=== PATIENT | female | born 1975 | race Caucasian/White ===

== ENCOUNTER → 2021-04-18 12:32 | Outpatient (BNVA) | payer OTHER, SELFPAY | PROVIDERS: Visit Provider Physician Assistant | DX: E66.3 Overweight (principal); Z68.28 Body mass index [BMI] 28.0-28.9, adult | CPT/HCPCS: 99202 ==

== ENCOUNTER 2021-05-14 10:30 | Outpatient (REF) | payer OTHER, SELFPAY | END 2021-05-14 10:31 | disposition home or self-care (01) | LOC: HO.LAB 10:30 | PROVIDERS: PCP Internal Medicine; Visit Provider Internal Medicine | DX: Z20.822 Contact with and (suspected) exposure to COVID-19 (principal) | CPT/HCPCS: C9803; U0003; U0005 ==

== ENCOUNTER 2021-05-27 14:58 | Outpatient (REF) | payer OTHER, SELFPAY ==
[2021-05-27 15:39] LABS: COVID-19 Test Negative (Negative); IDNOW Serial# 08D9AD1C
== END 2021-05-27 14:59 | disposition home or self-care (01) ==
LOC: HO.LAB 14:58
PROVIDERS: Visit Provider Internal Medicine
DX: Z20.822 Contact with and (suspected) exposure to COVID-19 (principal)
CPT/HCPCS: 36415; 87635; C9803

== ENCOUNTER 2021-07-17 13:53 | Outpatient (REF) | payer OTHER, SELFPAY | END 2021-07-17 13:54 | disposition home or self-care (01) | LOC: HO.LAB 13:53 | PROVIDERS: PCP Internal Medicine; Visit Provider Internal Medicine | DX: Z20.822 Contact with and (suspected) exposure to COVID-19 (principal) | CPT/HCPCS: C9803; U0003; U0005 ==

== ENCOUNTER 2021-09-29 12:15 | Outpatient (REF) | payer OTHER, SELFPAY | END 2021-09-29 12:16 | disposition home or self-care (01) | LOC: HO.LAB 12:15 | PROVIDERS: Visit Provider Internal Medicine | DX: Z20.822 Contact with and (suspected) exposure to COVID-19 (principal) | CPT/HCPCS: C9803; U0003; U0005 ==

== ENCOUNTER 2022-03-19 09:20 | Outpatient (REF) | payer OTHER, SELFPAY ==
--- NOTE | 2022-03-19 11:18 | MHC.AU.ANR ---
Adult Audiological Evaluation Date of Visit: 03/19/22 Reason for Appointment: Audiological evaluation due to concerns for decreased hearing. Ms. Roman notes that she has difficulty hearing when people are speaking softly and finds she has to turn the volume on the TV up. She feels her hearing has been worse over the past year. She notes some recent ear pain and fullness in her ears. She reports occasional ringing in her ears, which based on description is likely transient ear noise. Does patient feel they have a hearing loss?: Yes If Yes, Which Ear?: Both Ears When Was Hearing Difficulty First Noticed?: ~1 year ago Has hearing been tested previously?: No Hearing Handicap Inventory: HHIE SCORE: 8 Based on HHIE score, patient has: No perceived hearing handicap Ear History: Recent Ear Pain: Both Ears History of Ear Wax Buildup: Both Ears Blocked/Full Sensation in Ear(s): Both Ears Medical History: Medical History: Headache, High Fevers, Migraines, Asthma Allergies: Seasonal allergies, penicillin Medication List: cetirizine, Sronyx, Proair inhaler, Advair, Montelukast, sumatriptan Otoscopy: Right Ear: Unremarkable Left Ear: Unremarkable Tympanometry: Tympanometry performed due to: To assess integrity of the middle ear system Right Ear: Normal Middle Ear System (Type A) Left Ear: Normal Middle Ear System (Type A) Hearing Evaluation: Transducer(s) Used: Insert Earphones Method: Conventional Audiometry Stimuli Used: Pure Tones Right Ear: Description of Hearing: Normal hearing from 250-8000 Hz. Left Ear: Description of Hearing: Normal hearing from 250-8000 Hz. Speech Recognition Threshold (SRT): Method Used: Monitored Live Voice Stimuli Used: Spondee Words Right Ear: 10 dBHL Left Ear: 15 dBHL Word Discrimination: Method: Recorded Lists Word Lists Used: NU-6 Right Ear: 100% at 55 dBHL Left Ear: 100% at 55 dBHL Interpretation of Results: Today's testing indicates hearing in the normal range at all frequencies tested bilaterally and normal middle-ear function bilaterally. Speech recognition abilities in quiet are excellent at a normal conversational volume. Recommendations: No further audiological action is indicated at this time. Audiological re-evaluation if changes are noted. Diagnosis: Primary Diagnosis: H93.293 Abnormal Auditory Perception Services Performed: Services Performed: Pure Tone- Air (CPT 00844) Speech Audiometry Threshold, with Speech Recognition (CPT 18817) Tympanometry (CPT 41839) Signature: Provider: Lusi Jorge, CCC-A
== END 2022-03-19 09:21 | disposition home or self-care (01) ==
LOC: HO.SH 09:20
PROVIDERS: Visit Provider Internal Medicine
DX: Z01.10 Encounter for examination of ears and hearing without abnormal findings (principal); H93.293 Other abnormal auditory perceptions, bilateral
CPT/HCPCS: 92552; 92556; 92567

== ENCOUNTER → 2023-11-24 11:09 | Outpatient (BNVA) | payer OTHER, SELFPAY | PROVIDERS: PCP Internal Medicine; Visit Provider Physician Assistant ==

== ENCOUNTER 2023-12-17 09:56 | Outpatient (AMB) | payer OTHER, SELFPAY ==
--- NOTE | 2023-12-17 10:04 | MHC.OFFVISWM ---
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 She had one visit in our office for MWL program initiation, but did not follow up. Her weight in April 2021 was 143.6 with a BMI of 28. Her goal is to lose weight and achieve a healthy lifestyle. She reports first being concerned about her weight 15 years ago, highest weight to date was 165. Current weight is 154.6 pounds with a BMI of 30.2. She has tried multiple methods of weight loss including fad diets, without permanent results. She lives with her and daughter. 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 She wakes at:?9 am, and goes to bed at?1230 am. Dinner is at 8 pm. Breakfast: coffee starbucks RTD, banana (green-yellow), oatmeal AM snack: skip Lunch: skip or or soup panerra cheese and brocoli PM snack: skip Dinner: white rice w beef stew, rice and beans, steak, chicken, vegetables After dinner: flan, rice pudding Other snacks: eclair w milk Liquids: 16-32 oz water daily, orange soda or coke 12 oz 2-3 x per week, no juice Alcohol/marijuana/tobacco intake: none Exercise: walk, could join gym [facility] Medical History Hx of LEEP (loop electrosurgical excision procedure) of cervix complicating Surgical History Hx of breast biopsy History of conization of cervix History of pubovaginal sling Family History Mother Cancer Father Heart attack Brother No problems noted. Brother No problems noted. Sister No problems noted. Sister No problems noted. Daughter No problems noted. Daughter No problems noted. Daughter No problems noted. Social History Alcohol intake: current Alcohol intake frequency: holidays/special occasions only Patient Tobacco Use Status: Never used Tobacco Physical Exam Const General: cooperative, healthy appearing and no acute distress Orientation/consciousness: patient oriented x3 HEENT Head: Yes normal to inspection Ears: hearing grossly normal bilaterally General nose exam: Normal external nose present Face and sinus: Yes normal facial exam Eyes General: appearance normal, both eyes and all related structures Resp Effort & Inspection: normal respiratory effort Auscultation: clear to auscultation bilaterally Cardio Rate: regular rate Rhythm: regular rhythm Heart sounds: S1 normal heart sound present and S2 normal heart sound present GI Inspection: Yes normal to inspection, No distended and Yes obesity Palpation (GI): Soft to palpation, nontender and no guarding Auscultation: normal bowel sounds Skin General skin exam: no rashes or lesions noted Neuro General: patient oriented x3 Extrem General: No edema Psych Appearance: grossly normal Mental Status: mental status grossly normal Speech and movement: Normal speech and movement present Affect: normal affect Attitude: cooperative Assessment & Plan Assessment & Plan (1) Obesity (BMI 30-39.9): Code(s): E66.9 - Obesity, unspecified Plan: This is a?48 yo female who will start our MWL program.? She will be given a meal plan, exercise plan and follow-up appointment. ? Adequate sleep of 7-8 hours per night discussed, awakening at 9 ma nd going to bed around 1230 am ? Purchase body composition analyzer scale (Néstoro recommended) and check weight weekly. The best time to do this is first thing in the morning after going to the bathroom. 1. Nutritional counseling: Be sure to careful read the number of scoops per shake Start with 2 Celebrate Rebuild shakes ([facility] [employer], [employer], [email or web address])) First shake, 2 scoops in 12 oz unsweetened almond milk) at 10am-12pm 1 protein bar (Celebrate bars at [facility] [employer], [employer], [email or web address])) at 2pm-4pm. Another shake with 1 scoop in 12 oz unsweetened almond milk at 5pm-7pm. Dinner at 8pm (7 forks of protein and 7 forks of salad/vegetables). Meal to include lean meat (beef, fish, pork, turkey, chicken), cooked vegetables or a salad with olive oil and/or fruits (berries, pears, apples, kiwi). Avoid salt, breads, potatoes, rice, pasta, desserts. 1 cup fresh berries (strawberries, blueberries, raspberries, blackberries), or an apple, or pear, or kiwi, or orange in the evening if you wish. Try to drink 64 oz of water daily and avoid soda and juices. ?2. Each shake would be drunk slowly, like coffee in a period of 2 hours. ?3. Cut each bar in 4 pieces and eat each piece in 30 min ?to make each bar last 2 hours. ?4. I emphasized the importance of measuring accurately the food portion and measure it carefully when serving the food on the plate ?5. The meal portions include 7 full-size forks of meat and 7 full-size forks of salad. You always eat the meat portion but you can replace up to half of the forks of salad/vegetables with rice, potatoes or pasta, or a fruit ?if you like. The less you do it the better weight loss will be. ?6. One full-size fork is what can be scooped on the fork without falling aside and not what can be bit with the fork. Use regular forks like those you find in a typical restaurant. ?7.? Please send me weight measurements as soon as possible and then once a week. Always include your diet and exercise plan. Alternatively come weekly at the office for weight checks and send me the measurements. ?8. Exercise counseling: Begin by watching a stretching for beginners video. Start slowly and begin to stretch your muscles. You should do this before and after each exercise session to prevent injury. Please join a fitness gym near your home. Ask the utility sales and service manager or one of the trainers how to use the machines if you are unfamiliar with them. Start elliptical with a resistance of 2. Increase resistance by 1 every 3 min to your most comfortable resistance with a max resistance of 8. Reduce the resistance by 1 every 3 minutes back down to 2 and repeat cycles for 300 calories. Alternatively, start treadmill with a speed of 3.0 and incline of 0, increasing incline by 1 every 3 minutes to the highest comfortable level (max 6 for now) then decrease in the same fashion. Repeat process to a goal of 300 calories. Goal of 2000 calories burned or more weekly. You may also consider use of the stationary bike. The easiest would be to chose the fat-burn or interval training program on the machine and do this until you reach the 300 calorie goal. Alternatively, you can manually adjust the resistance in a similar fashion as mentioned above, (resistance of 2-8 with a goal speed of 12 mph). Tracking calories is essential. 9. Alternatively start walking outside daily, tracking calories with a goal of 300 calories per day, daily. You can download the cecil [employer] which can track your time, distance and calories while walking outside. You press start in the cecil when you start and then stop when you are finished. 10.? It is important to communicate with me by text weekly 11. Please follow the diet plan exactly, without any change. If you do not like something about the plan or you feel hungry, you need to communicate with me so I can help you revise the plan. You should not change the plan yourself. Text me at [phone] 12. Goal is to lose at least 8 pounds in the first month Patient is morbidly obese and is not considered stable at this time.?I spent a total of 70 minutes reviewing/updating records, examining the patient and counseling the patient on weight management as detailed above. Coding Level of Care Code Est Pt Level 4 (71183) Diagnoses Obesity (BMI 30-39.9) E66.9 Time Spent (min) 60
[2023-12-17 10:11] VITALS: BP 126/74; PULSE 90; TEMP 36.3; O2SAT 97; BMI 30.2
== END 2023-12-17 11:35 | disposition home or self-care (01) ==
PROVIDERS: PCP Internal Medicine; Visit Provider Physician Assistant Surgical
DX: E66.9 Obesity, unspecified (principal); Z68.30 Body mass index [BMI] 30.0-30.9, adult
CPT/HCPCS: 99214

== ENCOUNTER → 2023-12-17 09:56 | Outpatient (BNVA) | payer OTHER, SELFPAY | PROVIDERS: PCP Internal Medicine; Visit Provider Physician Assistant Surgical | DX: E66.9 Obesity, unspecified (principal); Z68.30 Body mass index [BMI] 30.0-30.9, adult | CPT/HCPCS: 99212 ==

== ENCOUNTER 2023-12-20 09:06 | Outpatient (REF) | payer OTHER, SELFPAY ==
[2023-12-20 09:33] LABS: MANUAL DIFF FLAG NO
[2023-12-20 09:50] LABS: Basophils Absolute Auto 0.1 X10*3/uL (0.0-0.2); Basophils Percent Auto 0.7 % (0-2); Eosinophils Absolute Auto 0.4 X10*3/uL (0.0-0.4); Eosinophils Percent Auto 3.8 % (0-4); Hematocrit 41.3 % (37.0-47.0); Hemoglobin 13.4 g/dl (12.0-16.0); Imm Gran Abs Auto 0.04 X10*3/uL (0.00-0.03); Imm Gran Pct Auto 0.4 % (0.0-0.4); Lymphocytes Absolute Auto 3.8 X10*3/uL (1.2-4.9); Lymphocytes Percent Auto 35.8 % (20-40); Mean Corpuscular HGB Conc 32.4 g/dl (31.0-35.0); Mean Corpuscular Hemoglobin 28.7 pg (27.0-33.0); Mean Corpuscular Volume 88.4 fL (80.0-98.0); Mean Platelet Volume 11.3 fL (9.4-12.3); Monocytes Absolute Auto 0.6 X10*3/uL (0.1-1.2); Neutrophils Absolute Auto 5.6 x10*3/uL (2.0-8.3); Neutrophils Percent Auto 53.3 % (45-73); Platelet Count 298 X10*3/uL (160-400); Red Blood Count 4.67 X10*6/uL (4.20-5.50); White Blood Count 10.5 X10*3/uL (4.8-10.8)
[2023-12-20 10:01] LABS: Estimated Average Glucose 103 mg/dL; Hemoglobin A1c % 5.2 % (<6.0)
[2023-12-20 10:51] LABS: Alanine Aminotransferase 14 U/L (0-31); Albumin Level 3.9 g/dL (3.5-5.0); Alkaline Phosphatase 64 U/L (39-117); Anion Gap 12 (12-20); Aspartate Amino Transferase 17 U/L (5-31); Bilirubin Total 0.3 mg/dL (0.0-1.0); Blood Urea Nitrogen 18 mg/dL (9-16); C Reactive Protein 1.09 mg/dL (< or = 0.50); Calcium 8.5 mg/dL (8.4-10.2); Carbon Dioxide 25 mmol/L (22-29); Chloride 106 mmol/L (96-108); Cholesterol 240 mg/dL (<200); Estimated Glomerular Filt Rate > 60; Glucose Random 98 mg/dL (60-115); HDL Cholesterol 57 mg/dL (>40); Iron 54 mcg/dL (30-160); LDL Cholesterol Calculated 169 mg/dL (<100); Percent Iron Saturation 16 % (15-50); Potassium 3.8 mmol/L (3.3-5.1); Sodium 139 mmol/L (135-145); Total Iron Binding Capacity 346 mcg/dL (228-428); Total Protein 7.3 g/dL (6.5-8.0); Triglycerides 73 mg/dL (<150); Unsaturated Iron Binding 292 ug/dL
[2023-12-20 11:00] LABS: Ferritin 65 ng/mL (10-250); TSH reflex Free T4 1.06 uIU/mL (0.32-4.0); Vitamin D 25-OH Total 30.7 ng/mL (>30)
[2023-12-20 11:38] LABS: Insulin 7 uU/mL (2-29)
[2023-12-20 12:29] LABS: Folate 8.8 ng/mL (> or = 4.0); Vitamin B12 471 pg/mL (200-900)
[2023-12-23 00:18] LABS: Zinc 80 mcg/dL (60-130)
[2023-12-24 01:24] LABS: Vitamin A 63 mcg/dL (38-98)
[2023-12-24 13:43] LABS: Vitamin B1 7 nmol/L (8-30)
== END 2023-12-20 09:07 | disposition home or self-care (01) ==
LOC: HO.LAB 09:06
PROVIDERS: PCP Internal Medicine; Visit Provider Physician Assistant Surgical
DX: E66.9 Obesity, unspecified (principal)
CPT/HCPCS: 36415; 80053; 80061; 82306; 82607; 82728; 82746; 83036; 83525; 83540; 84425; 84443; 84590; 84630; 85025; 86140

== ENCOUNTER 2024-01-14 14:13 | Outpatient (AMB) | payer OTHER, SELFPAY ==
[2024-01-14 11:04] VITALS: BMI 28.1
--- NOTE | 2024-01-14 11:04 | MHC.OFFVISWM ---
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 Allergies Sulfa (Sulfonamide Antibiotics) Allergy (Intermediate, Verified 11/24/23 13:27) Rash Seasonal Allergies Allergy (Mild, Verified 11/24/23 11:59) Unknown Penicillins Allergy (Unknown, Verified 11/24/23 11:59) Hives Medication List - Last Reconciled 01/14/24 by MILI Wolff cetirizine (Zyrtec) 10 mg PO DAILY PRN fluticasone propion-salmeterol 500-50 mcg/dose (Advair Diskus) 1 inh inhalation BID montelukast (Singulair) 10 mg PO DAILY thiamine HCl (vitamin B1) 100 mg PO DAILY 90 days HPI HPI Comments History of Present Illness Details Patient is a pleasant 48-year-old female who returns to the office today in follow-up for medical weight loss planning. She was last seen on 12/17/2023 with a weight of 154.4 lb and a BMI of 30.2. Weight today is 143.8 lb with a BMI of 10.6 lb weight loss or 6.8% total body weight loss. She states she had DESHPANDE at the beginning. States she is following the plan correctly. Meal plan: 2 Celebrate Rebuild shakes ([facility] [employer], [employer], [employer]) First shake, 2 scoops in 12 oz unsweetened almond milk) at 10am-12pm 1 protein bar (Celebrate bars at [facility] [employer], [employer], [employer]) at 2pm-4pm. Another shake with 1 scoop in 12 oz unsweetened almond milk at 5pm-7pm. Dinner at 8pm (7 forks of protein and 7 forks of salad/vegetables). 1 cup fresh berries (strawberries, blueberries, raspberries, blackberries), or an apple, or pear, or kiwi, or orange in the evening if you wish. Drinking 32 oz Exercise plan: walking outside daily, not tracking planning to join [employer] [facility] Medical History Hx of LEEP (loop electrosurgical excision procedure) of cervix complicating Surgical History Hx of breast biopsy History of conization of cervix History of pubovaginal sling Family History Mother Cancer Father Heart attack Brother No problems noted. Brother No problems noted. Sister No problems noted. Sister No problems noted. Daughter No problems noted. Daughter No problems noted. Daughter No problems noted. Social History Alcohol intake: current Alcohol intake frequency: holidays/special occasions only Patient Tobacco Use Status: Never used Tobacco Assessment & Plan Assessment & Plan (1) Overweight (BMI 25.0-29.9): Code(s): E66.3 - Overweight Plan: Patient is following the meal plan. We will change it slightly: 2 Celebrate Rebuild shakes ([facility] [employer], [employer], [employer]) First shake, 1 scoop in 12 oz unsweetened almond milk) at 10am-12pm 1 protein bar (Lique[employer] bars at [facility] [employer], [employer], [employer]) at 2pm-4pm. Another shake with 1 scoop in 12 oz unsweetened almond milk at 5pm-7pm. Dinner at 8pm (7 forks of protein and 7 forks of salad/vegetables). 1 cup fresh berries (strawberries, blueberries, raspberries, blackberries), or an apple, or pear, or kiwi, or orange in the evening if you wish. Encouraged to track calories when she is walking outside. She states that she is planning on joining [employer]. She was referred back to my original e-mail with a specific exercise plan. Telehealth Telehealth Location of provider rendering services: practice address Location of patient: address on file Patient Identification confirmed using: Name, : Yes Telehealth method: voice only Patient verbally consented to treatment: Yes Patient verbally consented to billing insurance company: Yes Patient informed of any privacy concerns related to visit: Yes Minutes spent on Phone/Video with Pt.: 12 Coding Level of Care Code Tele Est Pt Level 3 (99186) Diagnoses Overweight (BMI 25.0-29.9) E66.3 Time Spent (min) 15
== END 2024-01-14 14:16 | disposition home or self-care (01) ==
LOC: HO.HBS 14:13
PROVIDERS: PCP Internal Medicine; Visit Provider Physician Assistant Surgical
DX: E66.3 Overweight (principal)
CPT/HCPCS: 99213

== ENCOUNTER → 2024-01-14 14:13 | Outpatient (BNVA) | payer OTHER, SELFPAY | PROVIDERS: PCP Internal Medicine; Visit Provider Physician Assistant Surgical | DX: E66.3 Overweight (principal) ==

== ENCOUNTER 2024-03-03 15:14 | Outpatient (AMB) | payer OTHER, SELFPAY ==
[2024-03-03 13:37] VITALS: BMI 26.1
--- NOTE | 2024-03-03 13:37 | MHC.OFFVISWM ---
VS Expanded 03/03/24 13:37 Height 5 ft Weight 133 lb 6.4 oz BMI 26.1 Body Fat % 31.3 Intake Visit Reasons: tv f/u MWL Allergies Sulfa (Sulfonamide Antibiotics) Allergy (Intermediate, Verified 11/24/23 13:27) Rash Seasonal Allergies Allergy (Mild, Verified 11/24/23 11:59) Unknown Penicillins Allergy (Unknown, Verified 11/24/23 11:59) Hives HPI Comments Details: Patient is a pleasant 48-year-old female who returns to the office today in follow-up for medical weight loss planning. She was seen on 12/17/2023 for her 1st visit with a weight of 154.4 lb and a BMI of 30.2. Weight today is 133.4 lb with a BMI of 26.2. 21 lb weight loss or 13.6% total body weight loss. States her goal is 125-130 pounds. She states she had DESHPANDE at the beginning. States she is following the plan and can recount it perfectly. Meal plan: 2 Celebrate Rebuild shakes First shake, 1 scoop in 12 oz unsweetened almond milk) at 10am-12pm 1 protein bar (Celebrate bars) at 2pm-4pm. Another shake with 1 scoop in 12 oz unsweetened almond milk at 5pm-7pm. Dinner at 8pm (7 forks of protein and 7 forks of salad/vegetables). 1 cup fresh berries (strawberries, blueberries, raspberries, blackberries), or an apple, or pear, or kiwi, or orange. Drinking 64 oz per day. Exercise plan: walking outside daily, not tracking planning to join [facility] Medical History Hx of LEEP (loop electrosurgical excision procedure) of cervix complicating Surgical History Hx of breast biopsy History of conization of cervix History of pubovaginal sling Family History Mother Cancer Father Heart attack Brother No problems noted. Brother No problems noted. Sister No problems noted. Sister No problems noted. Daughter No problems noted. Daughter No problems noted. Daughter No problems noted. Social History Alcohol intake: current Alcohol intake frequency: holidays/special occasions only Patient Tobacco Use Status: Never used Tobacco Telehealth Telehealth Telehealth Platform: Telephone Location of provider rendering services: practice address Location of patient: address on file Patient Identification confirmed using: Name, : Yes Telehealth method: voice only Patient verbally consented to treatment: Yes Patient verbally consented to billing insurance company: Yes Patient informed of any privacy concerns related to visit: Yes Minutes spent on Phone/Video with Pt.: 12 Assessment & Plan Assessment & Plan (1) Overweight (BMI 25.0-29.9): Code(s): E66.3 - Overweight Category: Medical Plan: Overall, making good progress. Her family did get a new dog which is taking some of her time. Discussed the importance of going to [facility] [employer] and adding in weight training. She certainly may have some additional fresh fruit or carrots or celebrate or cucumbers in the 12-2 time slot as this is when she feels hungry. Encouraged to track calories when walking outside. Return to clinic 1 month.
== END 2024-03-03 15:22 | disposition home or self-care (01) ==
LOC: HO.HBS 15:14
PROVIDERS: PCP Internal Medicine; Visit Provider Physician Assistant Surgical
DX: E66.3 Overweight (principal)
CPT/HCPCS: 99213

== ENCOUNTER → 2024-03-03 15:14 | Outpatient (BNVA) | payer OTHER, SELFPAY | PROVIDERS: PCP Internal Medicine; Visit Provider Physician Assistant Surgical | DX: E66.3 Overweight (principal) ==

== ENCOUNTER 2024-04-04 12:30 | Outpatient (REF) | payer OTHER, SELFPAY ==
[2024-04-12 06:34] LABS: Vitamin B1 10 nmol/L (8-30)
== END 2024-04-04 12:31 | disposition home or self-care (01) ==
LOC: HO.LAB 12:30
PROVIDERS: Visit Provider Physician Assistant Surgical
DX: R79.89 Other specified abnormal findings of blood chemistry (principal); E66.3 Overweight
CPT/HCPCS: 36415; 82306; 84425